=== PATIENT | female | born 1965 | race Caucasian/White ===

== ENCOUNTER 2024-06-05 02:34 | Emergency (ER) | payer OTHER, SELFPAY ==
[2024-06-05] VITALS (9 sets, daily range): BP systolic 119–151; BP diastolic 74–106; BMI 19.7
[2024-06-05 03:24] LABS: % Basophils 1.1 % (0-2); % Eosinophils 0.8 % (0-6); % Immature Granulocytes 0.5 % (0-0.5); % Lymphocytes 23.9 % (20.5-51.1); % Neutrophils 65.7 % (42.2-75.2); Absolute Lymphocytes 0.9 10^3/uL (1.2-3.4); Absolute Monocytes 0.3 10^3/uL (0.1-0.6); Absolute Neutrophils 2.5 10^3/uL (1.4-6.5); Hematocrit 34.4 % (37.0-47.0); Hemoglobin 11.8 g/dL (12.0-16.0); Mean Corp Hgb Conc. 34.3 g/dL (33.0-37.0); Mean Corpuscular Hgb 33.8 pg (27.0-31.0); Mean Corpuscular Volume 98.6 fL (81.0-99.0); Nucleated Red Blood Cells % 0 %; Red Blood Cell Count 3.49 10^6/uL (4.20-5.40); Red Cell Dist. Width 13.6 % (11.5-14.5); White Blood Cell Count 3.8 10^3/uL (4.8-10.8)
[2024-06-05] MEDS: LET TOPICAL ANESTHETIC GEL 3 ML TOPICAL (03:28)
[2024-06-05 03:30] LABS: ALT (SGPT) 210 U/L (0-35); AST (SGOT) 429 U/L (14-36); Albumin 4.4 g/dl (3.5-5.0); Alkaline Phosphatase 46 U/L (38-126); Blood Urea Nitrogen 10 mg/dl (7-17); Calcium 9.1 mg/dl (8.4-10.2); Carbon Dioxide 26 mmol/L (22-30); Chloride 100 mmol/L (98-107); Estimated Creatinine Clearance 76 ml/min; Glucose 103 mg/dl (70-99); Potassium 3.4 mmol/L (3.5-5.1); Sodium 144 mmol/L (135-145); Total Bilirubin 0.7 mg/dl (0.2-1.3); eGFR > 60.00
--- NOTE | 2024-06-05 04:27 | ED.GENMED ---
History of Present Illness
<DOYLE Power - Last Filed: 06/05/24 05:56>
General
Chief Complaint: Fainting/Passed Out
Source: patient
Exam Limitations: none
Time Seen by Provider: 06/05/24 03:37
Nursing documentation reviewed up to this point in time: agreed with
History of Present Illness
History of Present Illness:
Patient is a 58yo F who presets via EMS after 2 syncopal episodes. Pt states she remembers her vision going black and legs giving out on first syncopal episode. She does not remember waking up between or 2nd syncopal episode. She was getting up to
go to the BR so urinated during syncopal episode. She reports falling forward onto chin. States there was blood everywhere and that could have caused her to pass out the 2nd time. She denies any recent illness or sxs previously in day. Notes
shakiness of Tuesday, went to PCP and told high BP. No sxs since. Reports pain in chin and L jaw. Laceration on chin. Reports pain developing in upper back between shoulder blades. Denies ROACH, dizziness, chest pain, SOB, N/V/D/C. Admits to daily
drinking 3 drinks/day.
Past History
<DOYLE Power - Last Filed: 06/05/24 05:56>
Past History
ED Past Medical History: HTN, Hypothyroidism and Psychiatric
ED Past Surgical History: Gynecological and Other
Social History
Tobacco: Non-smoker
Alcohol: Daily
Drug: None
Personal: Other
Living: with family
Review of Systems
<DOYLE Power - Last Filed: 06/05/24 05:56>
Review of Systems
Constitutional: Denies fever, fatigue or chills
EENT: Denies sore throat or runny nose
Respiratory: Denies cough or trouble breathing
Cardiac: Denies chest pain or palpitations
ABD/GI: Denies abdominal pain, nausea, vomiting, diarrhea or constipated
: Denies dysuria
Musculoskeletal: Reports muscle pain, neck pain and back pain
Neurological: Denies dizzy, headache or numbness
Phy Exam
<Lorna Whitman [facility] - Last Filed: 06/05/24 05:56>
General Physical Exam
General Presentation: mild distress
General age: appears stated age
General Skin: warm and dry
General Habitus: normal
General Mental: alert
Cardiovascular Exam
Cardiovascular Exam: regular rate/rhythm, no edema, no gallop and no murmur
Pulmonary Exam
Pulmonary Exam: lungs clear, no respiratory distress, no rales, no crackles, no rhonchi and no wheezing
Neurological Exam
Neurological Exam: alert, oriented x3, no motor deficits and speech normal
Musculoskeletal Exam
Musculoskeletal Exam: full ROM and other (no bony tenderness )
Course
<Lorna Whitman [facility] - Last Filed: 06/05/24 05:56>
Orders/Labs/Results
Orders:
Orders
06/05/24 02:35
EKG [Electrocardiogram (*1)] Urgent
Reason for Study: Syncope
06/05/24 02:36
EKG- Treatment ONCE
06/05/24 03:09
CMP [Comprehensive Metabolic Panel] Urgent
Complete Blood Count/With Diff Urgent
06/05/24 03:25
CT Cervical Spine W/o Iv Contr Urgent
Comment:
Reason For Exam: syncope, neck pain
CT Head W/o Iv Contrast Urgent
Comment:
Reason For Exam: syncope
06/05/24 03:26
Lidocaine/Epinephrine/Tetracai [Let Topical Anesthetic Gel] 3 ml .ROUTE .[facility]
06/05/24 03:28
Lidocaine/Epinephrine/Tetracai [Let Topical Anesthetic Gel] 3 ml TOPICAL NOW STA
06/05/24 04:31
Add On- LAB Urgent
Tests Added?: alcohol
06/05/24 04:42
Protime/PTT Urgent
06/05/24 05:19
Tetanus/Diphth/Acelpertussis [Adacel] 0.5 ml IM .ONCE ONE
Abnormal Lab Results
06/05/24
03:09
WBC 3.8 L 10^3/uL
(4.8-10.8)
RBC 3.49 L 10^6/uL
(4.20-5.40)
Hgb 11.8 L g/dL
(12.0-16.0)
Hct 34.4 L %
(37.0-47.0)
MCH 33.8 H pg
(27.0-31.0)
Plt Count 60 L 10^3/uL
(130-400)
Absolute Lymphs (auto) 0.9 L 10^3/uL
(1.2-3.4)
Potassium 3.4 L mmol/L
(3.5-5.1)
Glucose 103 H mg/dl
(70-99)
AST 429 H U/L
(14-36)
ALT 210 H U/L
(0-35)
06/05/24 03:09
06/05/24 03:09
Vital Signs
Initial and Last Documented VS:
Initial Vital Signs
Pulse Resp BP Pulse Ox
65 13 149/87 99
06/05/24 02:41 06/05/24 02:41 06/05/24 02:41 06/05/24 02:41
Last Documented Vital Signs
Pulse Resp BP Pulse Ox
74 11 133/82 93
06/05/24 05:45 06/05/24 05:45 06/05/24 05:00 06/05/24 05:45
<Cynthia Dhaliwal, DO - Last Filed: 06/05/24 06:13>
Orders/Labs/Results
Orders:
Orders
06/05/24 02:35
EKG [Electrocardiogram (*1)] Urgent
Reason for Study: Syncope
06/05/24 02:36
EKG- Treatment ONCE
06/05/24 03:09
CMP [Comprehensive Metabolic Panel] Urgent
Complete Blood Count/With Diff Urgent
06/05/24 03:25
CT Cervical Spine W/o Iv Contr Urgent
Comment:
Reason For Exam: syncope, neck pain
CT Head W/o Iv Contrast Urgent
Comment:
Reason For Exam: syncope
06/05/24 03:26
Lidocaine/Epinephrine/Tetracai [Let Topical Anesthetic Gel] 3 ml .ROUTE .[facility] ONE
06/05/24 03:28
Lidocaine/Epinephrine/Tetracai [Let Topical Anesthetic Gel] 3 ml TOPICAL NOW STA
06/05/24 04:31
Add On- LAB Urgent
Tests Added?: alcohol
06/05/24 04:42
Protime/PTT Urgent
06/05/24 05:19
Tetanus/Diphth/Acelpertussis [Adacel] 0.5 ml IM .ONCE ONE
Abnormal Lab Results
06/05/24
03:09
WBC 3.8 L 10^3/uL
(4.8-10.8)
RBC 3.49 L 10^6/uL
(4.20-5.40)
Hgb 11.8 L g/dL
(12.0-16.0)
Hct 34.4 L %
(37.0-47.0)
MCH 33.8 H pg
(27.0-31.0)
Plt Count 60 L 10^3/uL
(130-400)
Absolute Lymphs (auto) 0.9 L 10^3/uL
(1.2-3.4)
Potassium 3.4 L mmol/L
(3.5-5.1)
Glucose 103 H mg/dl
(70-99)
AST 429 H U/L
(14-36)
ALT 210 H U/L
(0-35)
06/05/24 03:09
06/05/24 03:09
Vital Signs
Initial and Last Documented VS:
Initial Vital Signs
Pulse Resp BP Pulse Ox
65 13 149/87 99
06/05/24 02:41 06/05/24 02:41 06/05/24 02:41 06/05/24 02:41
Last Documented Vital Signs
Pulse Resp BP Pulse Ox
74 11 133/82 93
06/05/24 05:45 06/05/24 05:45 06/05/24 05:00 06/05/24 05:45
Procedures
<DOYLE Power - Last Filed: 06/05/24 05:56>
Laceration Closure
Chin:
Status of Wound: clean
Size of Wound in cm: 1.5
Description of Wound Edges: sharp
Preparation: cleaned with saline
Anesthesia: Topical-LET
Revision/Debridement: routine- no revision
Type of Closure: Dermabond-skin glue
<DOYLE Power - Last Filed: 06/05/24 05:56>
*Critical Care Note
Total Time (30-74mins, 75-104mins- exclusive of procedures): Not Applicable
<Cynthia Dhaliwal DO - Last Filed: 06/05/24 06:13>
*Radiology
Radiology exam reviewed: radiology read reviewed
*Pulse Oximetry
Patient hypoxic: no
*EKG
Interpreted by ED Provider?: Yes
Interpretation: normal
Comparison EKG: no comparison EKG present
Rate: normal
Rhythm: sinus
[place]: normal axis
Interval: normal interval
QRS Pattern: normal QRS
Ischemia: no ischemia
*Content Production Specialist Interpretation
Rate: normal
Interpretation: normal
Rhythm: sinus
ED Attending Note
<DOYLE Power - Last Filed: 06/05/24 05:56>
-
Portions of this chart may have been created with voice recognition software.� Occasional wrong word or��sound alike� substitutions may have occurred due to the inherent limitations of voice recognition software.
<Cynthia Dhaliwal DO - Last Filed: 06/05/24 06:13>
ED Attending Note
Patient seen and examined by attending physician: Yes
I performed the substantive portion of visit, reviewed & personally made and approve the management plan that is documented in note by myself or TATE.: Yes
ED Attending Note:
This is a 58-year-old woman with history of hypothyroidism, daily alcohol consumption who states she got up out of bed to go to the bathroom to void and once in the bathroom she states her 'vision went black' and she proceeded to pass out striking
her chin on the bathroom floor. Her son heard a thud and upon investigating found his mother attempted to stand up and when she did so she abruptly passed out again but no recurrent injury. Patient has no recollection of her son being at her side
and second episode of passing out she does recall EMS arrival and has had full recollection since then.
She notes mild posterior neck pain but denies headache. No nausea nor vomiting. Mild jaw pain and some tenderness at chin laceration. She notes chronically poor dentition but denies dental pain nor dental fractures.
She notes mild mid back pain that only began after arrival to the ED with lying supine. She denies chest pain or abdominal pain. No extremity pain. No weakness or numbness. No palpitations nor shortness of breath.
She takes no anticoagulants.
She is unsure as to her last Tdap but believes this was definitely greater than 10 years ago.
TRAUMA EXAM:
VITAL SIGNS: Vital signs reviewed, cooperative
DISTRESS: No active disease. 58-year-old woman appears somewhat older than stated age, bright and alert, pleasant, appears in no acute distress. GCS of 15.
EYES: Pupils reactive, no orbital trauma
NOSE: No deformity or epistaxis
FACE AND SCALP: No scalp trauma, external canals no blood. There is a 3 cm mildly curved laceration at the chin. This laceration is full-thickness. No bleeding. Mild local tenderness to palpation. There is full mandible range of motion without
difficulty nor pain. Globally poor dentition. No dental tenderness. No facial tenderness.
NECK: Supple, no midline bony tenderness nor step-off deformity. Cervical collar in place.
BACK: Patient able to sit up with ease and without difficulty. No midline bony tenderness., pelvis stable to compression
RESPIRATORY: No distress, breath sounds normal, no tender chest wall
CARDIAC: No murmur, pulses equal and strong
ABDOMEN: Soft nontender bowel sounds normal
SKIN: Skin intact, warm and dry, normal color.
EXTREMITIES: Nontender, full range of motion without difficulty nor pain.
NEUROLOGICAL: Alert, oriented, no motor deficits
PSYCH: Mood affect normal
MDM: Concern for closed head injury, C-spine fracture thus CT of the head and cervical spine obtained.
Patient with history of chronic daily alcohol use, previous records note mild thrombocytopenia, mildly elevated LFTs. Will recheck and will check alcohol level as well however clinically not intoxicated.
History concerning for vasovagal syncope, other consideration is cardiac arrhythmia, electrolyte abnormality, alcohol intoxication.
EKG is reassuring showing normal sinus rhythm, no acute abnormalities. Monitor shows similar.
She remains hemodynamically stable.
Will plan for Dermabond repair of chin laceration.
06/05/[address] cervical spine shows DJD but no evidence of fracture.
CT of the head concerning for small subdural blood products along the anterior falx cerebri versus a small meningioma.
Labs are concerning for mild pancytopenia with platelet count of 60.
LFTs moderately elevated at 200-400 which is trended up from previous.
PT/PTT are pending as is alcohol level.
Patient remains bright and alert, GCS 15.
Due to thrombocytopenia and concern for subdural hematoma I have touch base with neurosurgery on-call recommends transfer to trauma center. Consider platelet transfusion to keep platelets above 100,000.
Case discussed with [facility] trauma, patient preliminarily accepted in transfer if there is bed availability.
06/05/2024 0609 AM
Patient accepted to [facility], transferred to the ED initially.
Patient remains bright and alert, GCS of 15. Denies headache.
Reassuring that PT PTT are normal.
Discharge Plan
Departure
Patient Disposition: Acute Care Hospital
Date of Disposition: 06/05/24
Time of Disposition: 05:30
Discharge Problem:
Acute subdural hematoma, Chin laceration, Syncope, vasovagal, Chronic alcohol use
Prescriptions:
No Action
Advil Cold and Sinus 30-200 mg Tablet
1 tab PO Q6H PRN (Reason: congestion)
acetaminophen [Tylenol Extra Strength] 500 mg Tablet
500 mg PO DAILYPRN PRN (Reason: headache)
fluticasone propionate 50 mcg/actuation [place],Suspension
1 spray INTRANASAL HSPRN PRN (Reason: congestion)
levothyroxine 88 mcg Tablet
88 mcg PO DAILY Qty: 30 0RF
Referrals:
Dayne Mars DO [Family Provider] -
Hospital Transfer
Other hospital: [facility]
I certify that the patient requires transfer: Yes
Discussed case with accepting physician: Rony
Reason for transfer: higher level of care and specialties available
Interventions
Interventions:
*Risk Screen - Suicide Last Done: 06/05/24 02:41
*General Assessment Last Done: 06/05/24 02:41
*Neglect/Abuse Screening Last Done: 06/05/24 02:41
*ED COVID-19 Vaccine History Last Done: 06/05/24 02:41
ED- Cardiac Assessment Last Done: 06/05/24 03:00
ED- Neurological Assessment Last Done: 06/05/24 05:00
ED-Skin Assessment Last Done: 06/05/24 03:56
Discharge Date and Time
Print Language: HEBREW
[2024-06-05 04:48] LABS: Mean Platelet Volume 9.1 fL (7.4-10.4); Platelet Count 60 10^3/uL (130-400)
[2024-06-05 04:59] LABS: APTT 23.6 Sec (23.4-35.0); INR 0.96; PT 12.6 Sec (11.4-14.6)
[2024-06-05] MEDS: ADACEL 0.5 ML IM (05:47)
--- NOTE | 2024-06-05 06:33 | EDRN ---
Report given to [facility] auto body repairman, auto body repairman w/ request for dayshift RN to call [facility] back when Acute Care arrives here to [place] [facility]. This RN to notify dayshift of this request. Current ETA for Acute Care is 08:45 this morning.
[2024-06-05 07:11] LABS: Alcohol 211 mg/dl
== END 2024-06-05 09:41 | disposition short-term general hospital (02) ==
LOC: EMR 02:34
PROVIDERS: EMERGENCY PHYSICIAN Emergency Medicine; FAMILY PHYSICIAN Family Medicine Adult Medicine
DX: S06.5XAA Traumatic subdural hemorrhage with loss of consciousness status unknown, initial encounter (principal); S01.81XA Laceration without foreign body of other part of head, initial encounter; R55 Syncope and collapse; F10.10 Alcohol abuse, uncomplicated; W22.03XA Walked into furniture, initial encounter; Z23 Encounter for immunization; I10 Essential (primary) hypertension; E03.9 Hypothyroidism, unspecified
CPT/HCPCS: 99284; 12011; 90471; 70450; 72125; 80053; 82077; 85025; 85610; 85730; 90715; 93005

== ENCOUNTER → 2024-06-14 16:01 | Outpatient (REF) | payer OTHER, SELFPAY | LOC: RAD 16:01 | PROVIDERS: ATTENDING PHYSICIAN Nurse Practitioner Family; FAMILY PHYSICIAN Family Medicine Adult Medicine | DX: S06.5XAA Traumatic subdural hemorrhage with loss of consciousness status unknown, initial encounter (principal) | CPT/HCPCS: 70450 ==

== ENCOUNTER 2024-06-28 00:06 | Observation (INO) | payer OTHER, SELFPAY ==
[2024-06-27 18:59] VITALS: BMI 19.9
[2024-06-27 19:03] VITALS: BP 169/119
[2024-06-27 19:19] LABS: % Basophils 0.6 % (0-2); % Eosinophils 0.1 % (0-6); % Immature Granulocytes 0.3 % (0-0.5); % Lymphocytes 12.9 % (20.5-51.1); % Monocytes 4.3 % (1.7-9.3); % Neutrophils 81.8 % (42.2-75.2); Absolute Basophils 0.1 10^3/uL (0-0.2); Absolute Lymphocytes 1.5 10^3/uL (1.2-3.4); Absolute Monocytes 0.5 10^3/uL (0.1-0.6); Absolute Neutrophils 9.6 10^3/uL (1.4-6.5); Hematocrit 42.5 % (37.0-47.0); Hemoglobin 14.2 g/dL (12.0-16.0); Mean Corp Hgb Conc. 33.4 g/dL (33.0-37.0); Mean Corpuscular Hgb 33.7 pg (27.0-31.0); Nucleated Red Blood Cells % 0 %; Platelet Count 266 10^3/uL (130-400); Red Blood Cell Count 4.21 10^6/uL (4.20-5.40); Red Cell Dist. Width 12.1 % (11.5-14.5); White Blood Cell Count 11.8 10^3/uL (4.8-10.8)
[2024-06-27 19:30] LABS: ALT (SGPT) 29 U/L (0-35); AST (SGOT) 25 U/L (14-36); Albumin 4.7 g/dl (3.5-5.0); Alkaline Phosphatase 43 U/L (38-126); Blood Urea Nitrogen 12 mg/dl (7-17); Calcium 9.8 mg/dl (8.4-10.2); Carbon Dioxide 24 mmol/L (22-30); Chloride 98 mmol/L (98-107); Glucose 107 mg/dl (70-99); Lipase 177 U/L (23-300); Potassium 4.2 mmol/L (3.5-5.1); Sodium 134 mmol/L (135-145); Total Bilirubin 0.4 mg/dl (0.2-1.3); Total Protein 7.6 g/dl (6.3-8.2); eGFR > 60.00
[2024-06-27 20:42] VITALS: BP 174/106
--- NOTE | 2024-06-27 20:42 | ED.GENMED ---
History of Present Illness
General
Chief Complaint: Abdominal Pain
Source: patient and records
Exam Limitations: none
Time Seen by Provider: 06/27/24 20:19
Nursing documentation reviewed up to this point in time: agreed with
History of Present Illness
History of Present Illness:
58-year-old female with a past medical history of hypertension, hypothyroidism, thyroid cancer status post thyroidectomy who presents to the emergency room for evaluation of abdominal pain. Patient does have notable recent history of traumatic
subdural hemorrhage in late May, was admitted at [facility] has been stable since discharge (had follow-up CT 06/14/2024 which showed resolution). She presents today for abdominal pain�she reports pain located in the lower abdomen
somewhat worse on the left and has been constant since this morning. No clear triggering or relieving factors noted. She reports 1 episode of nonbloody nonbilious emesis. She denies any diarrhea or constipation�had 2 regular bowel movements today
nonbloody. She denies any fevers or chills. She denies any urinary symptoms. She denies any other complaints. She denies having had similar symptoms in the past. She has prior surgical history of hysterectomy.
Past History
Past History
ED Past Medical History: HTN, Hypothyroidism and Psychiatric
ED Past Surgical History: Gynecological and Other
Social History
Tobacco: Non-smoker
Alcohol: Daily
Drug: None
Personal: Other
Living: with family
Review of Systems
Review of Systems
All Other Systems: ROS reviewed and negative except as documented in HPI and ROS
Constitutional: Denies fever or chills
EENT: Denies sore throat or runny nose
Respiratory: Denies cough or trouble breathing
Cardiac: Denies chest pain or palpitations
ABD/GI: Reports abdominal pain, nausea and vomiting; Denies diarrhea, constipated or bloody stools
: Denies dysuria, frequency, flank pain or bleeding
Musculoskeletal: Denies neck pain or back pain
Neurological: Denies dizzy or headache
Phy Exam
Physical Exam
Physical Exam:
General: Awake, alert, oriented x3; no acute distress
Head: Normocephalic, atraumatic
Eyes: Conjunctiva normal, sclera anicteric, pupils equal round reactive to light bilaterally
Throat: Airway intact, handling secretions
Neck: Trachea midline, supple without meningismus
Lungs: Clear to auscultation bilaterally, no wheezing, rales, rhonchi
Heart: Regular rate and rhythm, no murmurs, gallops, or rubs
Abd: Soft, non distended, focally tender in the left lower quadrant, no palpable masses
Back: No CVA tenderness
Neuro: No gross deficits
Extremities: No edema in extremities, warm and well-perfused
Scores
Heart Failure Risk
Heart Failure Risk Score: Not Applicable
Heart Score for Chest Pain Patients
STEMI patient?: Not applicable
Withdrawal Assessment of Alcohol
Withdrawal Assessment Completed?: Not applicable
Course
Orders/Labs/Results
Orders:
Orders
06/27/24 19:06
Urinalysis Reflex To Culture Urgent
Date Specimen was Collected: 06/27/24
Time Specimen was Collected: 19:06
06/27/24 19:12
Complete Blood Count/With Diff Urgent
Comprehensive Metabolic Panel Urgent
Lipase Urgent
06/27/24 20:27
Ketorolac [Toradol] 15 mg IV NOW STA
06/27/24 20:28
CT Abd/pelvis W Iv Cont Urgent
Comment:
Reason For Exam: LLQ abd pain and TTP
Abnormal Lab Results
06/27/24
19:12
WBC 11.8 H 10^3/uL
(4.8-10.8)
MCV 101.0 H fL
(81.0-99.0)
MCH 33.7 H pg
(27.0-31.0)
Absolute Neuts (auto) 9.6 H 10^3/uL
(1.4-6.5)
Neutrophils % 81.8 H %
(42.2-75.2)
Lymphocytes % 12.9 L %
(20.5-51.1)
Sodium 134 L mmol/L
(135-145)
Glucose 107 H mg/dl
(70-99)
06/27/24 19:12
06/27/24 19:12
Vital Signs
Initial and Last Documented VS:
Initial Vital Signs
Temp Pulse Resp BP Pulse Ox
37.2 C 88 19 169/119 98
06/27/24 19:03 06/27/24 19:03 06/27/24 19:03 06/27/24 19:03 06/27/24 19:03
Last Documented Vital Signs
Temp Pulse Resp BP Pulse Ox
37.2 C 88 19 174/106 97
06/27/24 19:03 06/27/24 19:03 06/27/24 19:03 06/27/24 20:42 06/27/24 21:15
MDM/Problems Addressed
Differential Diagnosis Includes:
Diverticulitis, UTI/pyelonephritis, nephrolithiasis, hernia
MDM/Problems Addressed:
58-year-old female presents for evaluation of left lower quadrant abdominal pain started this morning has been constant throughout the day. Associated with 1 episode of vomiting. Hypertensive otherwise normal vitals. Physical exam as above. Will
place an IV check labs including a CBC and a CMP. Check lipase. Check urinalysis. Check CT abdomen pelvis. Provide pain control. Reassess after the above.
Labs reviewed: CBC shows slight leukocytosis. CMP no clinically significant abnormalities. Lipase normal. Awaiting results of CT and urinalysis. Continue to monitor.
CT abdomen pelvis reviewed: Shows small bowel obstruction with discrete transition point near right inguinal hernia containing a small loop of the distal ileum. On clinical reassessment I was able to palpate the small hernia in the right inguinal
region. I was able to reduce it at the bedside. Will admit for serial exams and monitoring of SBO. No vomiting, hold on NG tube. Case discussed with hospitalist.
Acute Exacerbation and/or Progression of Chronic Illness:
Acutely hypertensive likely pain related�treat pain but no indication for emergent antihypertensives right now
Acute Exacerbation and/or Progression of Chronic Illness: HTN
*Radiology
Radiology exam reviewed: radiology read reviewed
*Pulse Oximetry
Patient hypoxic: no
*Critical Care Note
Total Time (30-74mins, 75-104mins- exclusive of procedures): Not Applicable
Data Reviewed
Review of Other/Old Records Reveals: Labs and Records
Source: patient and records
Patient Management
Discussion with other providers: Hospitalist (Discussed with hospitalist)
Escalation/DeEscalation of care consider admission/obs:
Admission indicated
ED Attending Note
-
Portions of this chart may have been created with voice recognition software.� Occasional wrong word or��sound alike� substitutions may have occurred due to the inherent limitations of voice recognition software.
Discharge Plan
Departure
Patient Disposition: Admit
Date of Disposition: 06/27/24
Time of Disposition: 22:27
Admit to doctor: Irvin
Presentation/result/management discussed w/ accepting MD/DO: Hospitalist
Discharge Problem:
Small bowel obstruction, Inguinal hernia
Prescriptions:
No Action
Advil Cold and Sinus 30-200 mg Tablet
1 tab PO Q6H PRN (Reason: congestion)
acetaminophen [Tylenol Extra Strength] 500 mg Tablet
500 mg PO DAILYPRN PRN (Reason: headache)
fluticasone propionate 50 mcg/actuation [place],Suspension
1 spray INTRANASAL HSPRN PRN (Reason: congestion)
levothyroxine 88 mcg Tablet
88 mcg PO DAILY Qty: 30 0RF
Referrals:
Dayne Mars DO [Family Provider] -
Interventions
Interventions:
*General Assessment Last Done: 06/27/24 20:53
*ED COVID-19 Vaccine History Last Done: 06/27/24 20:53
OJ-Xpqplx-Xuwknipksf Assessment Last Done: 06/27/24 20:54
Discharge Date and Time
Print Language: SLOVENIAN
[2024-06-27] MEDS: TORADOL 15 MG IV (20:49)
--- NOTE | 2024-06-27 23:13 | HPS.HSE ---
Family Physician
-
Family Physician: Dayne Mars
Chief Complaint
-
abdominal pain
History of Present Illness
58-year-old female past medical history of hypertension, thyroid cancer status post thyroidectomy, hypothyroidism, subdural hemorrhage in May presenting to the emergency room for abdominal pain. She had pain in her lower abdomen worse on the
right constant since this morning. She had 1 episode of nonbloody nonbilious emesis. She denies diarrhea or constipation. She had 2 regular bowel movements today without blood. She denies fevers or chills. Denies urinary symptoms. Denies
similar symptoms previously.
She is found to have right inguinal hernia on examination which was reduced. She has less pain currently.
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
She denies smoking or alcohol use.
Medical History
Past Medical History
Past Medical History: Reports Other (hypertension, thyroid cancer status post thyroidectomy, hypothyroidism, subdural hemorrhage in May)
Past Surgical History: Reports Other (Hysterectomy)
Social History
Tobacco: Non-smoker
Alcohol: None
Drug: None
Family History
Family History: Not pertinent
Allergies / Home Medications
Allergies reflects when Allergies were last updated in [email or web address].
Home Medications with original date entered in [email or web address]
Allergy/Medication List:
Allergies
Allergy/AdvReac Type Severity Reaction Status Date / Time
amoxicillin Allergy Hives Verified 06/27/24 19:06
bacitracin Allergy Hives Verified 06/27/24 19:06
Cephalosporins Allergy Hives Verified 06/27/24 19:06
clindamycin Allergy Hives Verified 06/27/24 19:06
Penicillins Allergy Hives Verified 06/27/24 19:06
polymyxin B Allergy Unknown Verified 06/27/24 19:06
Home Medications
levothyroxine 75 mcg tablet 75 mcg PO DAILY 06/27/24
Review of Systems
-
History Source: Patient
A 12 point ROS was completed and negative except as noted: Yes
Constitutional: Reports No Symptoms
EENT: Reports No Symptoms
Respiratory: Reports No Symptoms
Cardiac: Reports No Symptoms
Abdomen/GI: Reports See HPI
: Reports No Symptoms
Musculoskeletal: Reports No Symptoms
Skin: Reports No Symptoms
Neurological: Reports No Symptoms
Endocrine: Reports No Symptoms
Hematologic/Lymphatic: Reports No Symptoms
Psych: Reports No Symptoms
Physical Exam
Vital Signs
Vital Signs
Temp Pulse Resp BP Pulse Ox
99.0 F 88 19 174/106 97
06/27/24 19:03 06/27/24 19:03 06/27/24 19:03 06/27/24 20:42 06/27/24 21:15
Physical Exam
General: Well Developed, Well Nourished and No Apparent Distress
HEENT: NormoCephalic, Moist mucous membranes and Atraumatic
Respiratory: Clear
Cardiac: S1/S2 and Regular Rhythm; No Murmur or Rub
GI: Soft, Non Tender, Non Distended, Normal Bowel Sounds and Other (right inguinal hernia reduced ); No Organomegaly
Rectal: Deferred by Provider
Musculoskeletal: No Clubbing, No Cyanosis and No Edema
Skin: No Rash
Neuro: Nonfocal/grossly intact
Laboratory Results
-
06/27/24 19:12
06/27/24 19:12
Laboratory Results
Total Bilirubin 0.4 mg/dl (0.2-1.3) 06/27/24 19:12
AST 25 U/L (14-36) 06/27/24 19:12
ALT 29 U/L (0-35) 06/27/24 19:12
Alkaline Phosphatase 43 U/L (38-126) 06/27/24 19:12
Lipase 177 U/L (23-300) 06/27/24 19:12
Data Reviewed
-
Lab Data: Labs Reviewed by me
Old Records: Reviewed
Impression/Plan
-
IMPRESSION:
PLAN:
# Small bowel obstruction within right inguinal hernia now reduced
-Leukocytosis
-CT abdomen pelvis shows small bowel obstruction with discrete transition point at the site of the right inguinal hernia that contains a short segment of distal ileal small bowel
-Reduced by ER
-Ketorolac, Dilaudid as needed
-N.p.o.
-IV fluids, Zofran
-General Surgery consulted
Essential hypertension
Thyroid cancer status post thyroidectomy
Hypothyroidism
-Continue levothyroxine
History of subdural hemorrhage in May
Full code
DVT prophylaxis�SCDs
N.p.o.
[2024-06-27] MEDS: NSS 1000 IV (23:15)
[2024-06-27 23:37] LABS: Urine Albumin Negative (Neg - Trace); Urine Bilirubin Negative (Negative); Urine Character Clear (Clear); Urine Color Yellow; Urine Glucose Negative (Negative); Urine Ketone Trace (Negative); Urine Leukocyte Negative (Negative); Urine Nitrite Negative (Negative); Urine Occult Blood Negative (Negative); Urine Urobilinogen Negative (Neg - 1+)
[2024-06-27 23:49] VITALS: BP 147/108
[2024-06-28] VITALS: BP 137/84
[2024-06-28 00:17] VITALS: BMI 19.4
[2024-06-28 00:18] VITALS: BP 187/109
[2024-06-28] MEDS: NSS 1000 IV (00:31)
[2024-06-28 00:43] VITALS: BP 190/105
--- NOTE | 2024-06-28 01:12 | PTCARENOTE ---
Received pt from ED. Walked to bed from stretcher. BP at 00:18 was 187/109. Manual BP obtained, 190/105. Per pt, she is very sensitive to blood pressure medication and the docs in the ED wanted to just monitor it. Pt stated that she had taken
medication for her blood pressure in the past but that it 'brought it too low' and then she needed medication to 'bring it back up' but that she was 'allergic' to said medication. Pt could not recall either medication. She also stated that when her
PCP tried to start her on the 'lowest dose' of a blood pressure medication, it lowered her BP too much. She could not recall that medication either. House provider notified of elevated BP. Will recheck BP once pt settled down in room. No new orders
at this time.
[2024-06-28 01:39] VITALS: BP 138/90
[2024-06-28] MEDS: SYNTHROID 75 MCG PO (05:15)
[2024-06-28 06:39] LABS: % Basophils 0.9 % (0-2); % Eosinophils 0.9 % (0-6); % Immature Granulocytes 0.4 % (0-0.5); % Lymphocytes 20.9 % (20.5-51.1); % Monocytes 6.7 % (1.7-9.3); % Neutrophils 70.2 % (42.2-75.2); Absolute Basophils 0.1 10^3/uL (0-0.2); Absolute Eosinophils 0.1 10^3/uL (0-0.7); Absolute Lymphocytes 1.7 10^3/uL (1.2-3.4); Absolute Monocytes 0.6 10^3/uL (0.1-0.6); Absolute Neutrophils 5.8 10^3/uL (1.4-6.5); Hemoglobin 13.1 g/dL (12.0-16.0); Mean Corpuscular Hgb 33.6 pg (27.0-31.0); Mean Corpuscular Volume 105.1 fL (81.0-99.0); Nucleated Red Blood Cells % 0 %; Platelet Count 245 10^3/uL (130-400); Red Cell Dist. Width 12.1 % (11.5-14.5); White Blood Cell Count 8.2 10^3/uL (4.8-10.8)
[2024-06-28 06:59] LABS: ALT (SGPT) 23 U/L (0-35); AST (SGOT) 23 U/L (14-36); Albumin 3.7 g/dl (3.5-5.0); Alkaline Phosphatase 31 U/L (38-126); Blood Urea Nitrogen 9 mg/dl (7-17); Calcium 8.9 mg/dl (8.4-10.2); Carbon Dioxide 26 mmol/L (22-30); Chloride 105 mmol/L (98-107); Estimated Creatinine Clearance 88 ml/min; Glucose 83 mg/dl (70-99); Potassium 4.4 mmol/L (3.5-5.1); Sodium 142 mmol/L (135-145); Total Bilirubin 0.5 mg/dl (0.2-1.3); Total Protein 6.5 g/dl (6.3-8.2); eGFR > 60.00
[2024-06-28 08:00] VITALS: BP 129/86
--- NOTE | 2024-06-28 08:42 | CON.GS ---
Medical History
-
Chief Complaint: Abdominal pain
History of Present Illness:
Patient is a 58-year-old female was in her usual baseline state of health until she developed the acute onset of abdominal pain yesterday while she was out with grandchildren and daughter. She states today proceeding her symptoms she was doing a
lot of moving around the house but felt fine at that time. Abdominal pain was abrupt in onset increased in severity and within a couple hours she started vomiting. Initially she was not localizing the pain or tenderness and did not take note of
the swelling. She presented to the emergency department yesterday evening for evaluation. CT imaging was obtained identifying a right femoral hernia. This was subsequently confirmed by the emergency physician and the team was able to reduce the
hernia.
Symptoms are resolved this a.m. denies pain. Denies swelling in the inguinal region. No nausea. Hungry. Last bowel movement yesterday.
Past Medical History
Past Medical History: Other (Labile blood pressure with hypertension as well as hypotension reported by patient; hypothyroidism, subdural in May)
Past Surgical History: Gynecological (Vaginal hysterectomy) and Other (Thyroidectomy)
Social History
Living: With Family
Family History
Family History: Reviewed & Not Pertinent
Allergies / Home Medications
Allergy/AdvReac Type Severity Reaction Status Date / Time
amoxicillin Allergy Hives Verified 06/27/24 19:06
bacitracin Allergy Hives Verified 06/27/24 19:06
Cephalosporins Allergy Hives Verified 06/27/24 19:06
clindamycin Allergy Hives Verified 06/27/24 19:06
Penicillins Allergy Hives Verified 06/27/24 19:06
polymyxin B Allergy Unknown Verified 06/27/24 19:06
�Medication �Instructions �Recorded �Confirmed �Type
levothyroxine 75 mcg tablet 75 mcg PO DAILY 06/27/24 06/27/24 History
Review of Systems
-
History Source: Patient
All other systems: Negative unless noted
A 10 point review of systems was completed, and was negative except as per HPI.
Physical Exam
Vital Signs
Temp Pulse Resp BP Pulse Ox
98.3 F 70 16 129/86 100
06/28/24 08:00 06/28/24 08:00 06/28/24 08:00 06/28/24 08:00 06/28/24 08:00
06/27/24 06/28/24 06/29/24
06:59 06:59 06:59
Actual Weight 54.431 kg
Body Mass Index (BMI) 19.4
Lab Results
06/28/24 05:21
06/28/24 05:21
WBC 8.2 10^3/uL (4.8-10.8) 06/28/24 05:21
Hgb 13.1 g/dL (12.0-16.0) 06/28/24 05:21
Hct 41.0 % (37.0-47.0) 06/28/24 05:21
Plt Count 245 10^3/uL (130-400) 06/28/24 05:21
Abs Immat Gran (auto) 0.0 10^3/uL (0-0.05) 06/28/24 05:21
Neutrophils % 70.2 % (42.2-75.2) 06/28/24 05:21
Physical Exam
General: Well Developed, Well Nourished, No Apparent Distress and Comfortable
HEENT: Normocephalic, Anicteric and Moist Mucous Membranes
Respiratory: Non Labored Respirations
Cardiac: Regular Rhythm
GI: Soft, Non Tender, Non Distended and Other (No detectable hernia while lying supine in hospital bed.)
Skin: Warm
Neuro: AO x 3
Psych: Calm
Data Reviewed
-
CT Scan: Image Personally Visualized and interpreted, Report Reviewed by me, Discussed with Physician, Discussed with Patient and Discussed with Family
Assessment / Plan
-
Assessment: 58-year-old female presenting with temporarily incarcerated right femoral hernia and associated SBO. This was able to be reduced by emergency department staff. Her symptoms are now completely resolved there is no residual obstructive
symptoms either.
Offered and recommended strong consideration of operative correction today. Patient declined as she has a doctor's appointment tomorrow with her neurologist and she does not want to miss this.
Advised patient and her daughter who was present on conference phone call risk for recurrent incarceration/strangulation/obstruction which would necessitate repeat emergency department evaluation and possible need for more urgent/emergent surgical
intervention as well as threat to bowel/viscera. They acknowledged this risk and understanding.
Plan: We will therefore advance her diet and discharge home with outpatient scheduling of interval robotic assisted laparoscopic repair right femoral hernia with mesh.
Reviewed the operative procedure in detail the patient including the operative technique, operative recovery. Any of the patient's or her daughters concerns or questions were fully addressed.
My office will contact Ms. Infante to schedule outpatient surgery
--- NOTE | 2024-06-28 09:55 | CM ---
Reviewed the chart notes and spoke with the patient at the bedside. The patient is admitted under observational status. The observational letter was provided and explained. The patient had no questions with regards to the letter.
The patient's son resides with the patient in a two story home with three steps to enter. The patient reports no DME/VN/SNF in the past. The patient confirmed her pharmacy of choice is the [facility] continues to be available to
patient/family and is monitoring medical plan for needs at discharge.
Plan: Discharge to home when medically stable.
--- NOTE | 2024-06-28 12:48 | W.PN.HOSP.TC ---
Today's Communication/Plan
-
Discharge home
Assessment / Plan
Assessment / Plan
Small bowel obstruction with an right inguinal hernia, reduced in the ER, evaluated by general surgery recommended surgical intervention however refused and would like outpatient surgical follow-up. Tolerating diet well. Will be discharged home
today.
Hypothyroidism continue levothyroxine
Anticipated Discharge: Today
Subjective/Interval History
-
Date of Service: June 28, 2024
Seen and examined. No new complaints. No acute overnight events.
Tolerating breakfast very well. No complaints.
Has intermittent lower pelvic discomfort. Passing gas. Moving bowels.
Discussed case with surgery, she refused surgical intervention at this time and would like to go home with outpatient surgical follow-up.
Objective Data
-
Labs:
Laboratory Results
06/28/24
05:21
WBC 8.2
Hgb 13.1
Hct 41.0
Plt Count 245
Sodium 142 D
Potassium 4.4
Chloride 105
Carbon Dioxide 26
BUN 9
Creatinine 0.6
Glucose 83
Calcium 8.9
Total Bilirubin 0.5
AST 23
ALT 23
Alkaline Phosphatase 31 L
Vital Signs:
Vital Signs
Temp Pulse Resp BP Pulse Ox
98.3 F 70 16 129/86 100
06/28/24 08:00 06/28/24 08:00 06/28/24 08:00 06/28/24 08:00 06/28/24 08:00
I&O
06/27/24 06/28/24 06/29/24
06:59 06:59 06:59
Intake Total 800 / 800
Balance 800 / 800
--- NOTE | 2024-06-28 12:50 | W.DCSUMMARY ---
Discharge Summary
Discharge Data
Date of Admission: 06/28/24
Date of Discharge: 06/28/24
-
Pending Results: No
Hospital Course
58 female history of hypertension thyroid cancer s/p thyroidectomy, hypothyroidism, subdural hemorrhage in May who presents with abdominal pain that is lower worse on the right that acutely began yesterday morning. 1 episode of nonbilious
nonbloody vomiting. 2 regular BMs without blood. CT found small bowel obstruction with discrete transition point at site of right inguinal hernia that contains short segment of distal ileal small bowel. Reduced by the ER. Kept NPO. Evaluated by
general surgery recommended surgical intervention however Ms. Infante declined and would like outpatient surgical follow up
Discharge Plan
-
Patient Disposition: Home (Routine Discharge)
Discharge Diagnosis/Procedures: SBO with inguinal hernia that was reduced
Condition: Good
Diet: As tolerated
Activity: As tolerated
Activity Restrictions/Additional Instructions:
CTAP
IMPRESSION:
Developing small bowel obstruction with a discrete transition point at the site of a right inguinal hernia that contains a short segment of distal ileal small bowel.
Referrals:
Dayne Mars DO [Family Provider] -
Rolo Harper MD [Active] - in one to two weeks
Prescriptions:
Continued
levothyroxine 75 mcg tablet
75 mcg PO DAILY
Discharge Orders:
Discharge Patient (As Directed); Ordered 06/28/24
Ordered By: Sunil Cramer
Discharge Date and Time
Discharge Date/Time: 06/28/24 11:14
Print Language: WOLOF
== END 2024-06-28 11:14 | disposition home or self-care (01) ==
LOC: 2 SOUTH 00:06
PROVIDERS: Emergency Medicine; ADMITTING PHYSICIAN Hospitalist; ATTENDING PHYSICIAN Hospitalist; CONSULT PHYSICIAN Surgery; EMERGENCY PHYSICIAN Emergency Medicine; FAMILY PHYSICIAN Family Medicine Adult Medicine
DX: K41.30 Unilateral femoral hernia, with obstruction, without gangrene, not specified as recurrent (principal); K56.609 Unspecified intestinal obstruction, unspecified as to partial versus complete obstruction; R10.9 Unspecified abdominal pain; I10 Essential (primary) hypertension; E89.0 Postprocedural hypothyroidism; D72.829 Elevated white blood cell count, unspecified; Z85.850 Personal history of malignant neoplasm of thyroid; Z90.710 Acquired absence of both cervix and uterus; Z87.820 Personal history of traumatic brain injury; Z79.890 Hormone replacement therapy; Z88.1 Allergy status to other antibiotic agents; Z88.0 Allergy status to penicillin
CPT/HCPCS: 74177; 80053; 81003; 83690; 85025; 96361; 96374; 99284; Q9967

== ENCOUNTER 2024-07-30 06:26 | Day surgery (SDC) | payer OTHER, SELFPAY ==
[2024-07-30] VITALS (7 sets, daily range): BP systolic 125–150; BP diastolic 81–91; BMI 20.2
--- NOTE | 2024-07-30 10:44 | HP.FOC2 ---
Focused History & Physical
Chief Complaint
HPI:
Chief Complaint: Right femoral hernia
HPI / Indication for Planned Procedure: Patient is a 58-year-old female recently evaluated in the emergency department on 06/28/2024 after developing the acute onset of abdominal pain and right inguinal swelling. The emergency department physician
and team were able to reduce her hernia alleviating her symptoms. Patient presents today for scheduled operative correction.
Relevant Past Medical History: Other (Labile blood pressure with hyper/hypotension; hypothyroidism, history of subdural hemorrhage in May)
Relevant Social History: Negative
Relevant Family History: Negative
Relevant Past Surgical History: Positive for (Hysterectomy, thyroidectomy)
Review of Systems
Review of Pertinent Systems: All Systems Negative
Medication
See Medication form for detailed medications: Yes
Medication List (including Herbals & OTC):
levothyroxine 75 mcg tablet 75 mcg PO DAILY 06/27/24
Medications Reviewed: Yes
Allergies and Reactions
Patient has Allergies: Yes
Noted Allergies and Reactions:
Allergy/AdvReac Type Severity Reaction Status Date / Time
amoxicillin Allergy Hives Verified 07/26/24 14:54
bacitracin Allergy Hives Verified 07/26/24 14:54
Cephalosporins Allergy Hives Verified 07/26/24 14:54
clindamycin Allergy Hives Verified 07/26/24 14:54
Penicillins Allergy Hives Verified 07/26/24 14:54
polymyxin B Allergy Unknown Verified 07/26/24 14:54
Pertinent Physical Exam
All Other Systems: Negative
Head/Neck: Normal
Lungs: Normal
Heart: Normal
Abdomen: Other (Reducible right femoral hernia)
Extremities: Normal
Neurological: Normal
Diagnosis / Assessment
58-year-old female presenting for scheduled operative correction symptomatic right femoral hernia after recent bout of temporary incarceration with obstruction
Plan / Procedure
Robotic assisted laparoscopic repair of right femoral hernia with mesh
Anesthesia/Sedation to be done by Anesthesia Provider: Yes
--- NOTE | 2024-07-30 10:47 | W.SUR.PREOP ---
Pre-Operative Surgical Note
-
I have examined this patient prior to the performance of the scheduled procedure.
The patient's condition is unchanged from the time of the current History and
Physical and the patient is able to undergo the scheduled procedure.
[2024-07-30] MEDS: TYLENOL 1000 MG PO (12:16)
[2024-07-30] MEDS: NORMOSOL-R/PLASMALYTE-A 1000 IV (12:18)
--- NOTE | 2024-07-30 14:40 | W.IMMPOSTOP ---
Addendum entered and electronically signed by Rolo Harper MD 07/30/24 14:49:
#[id number]
Original Note:
Surgical Immed Post Op Note
-
Primary Surgeon: Rolo Harper MD
Assisting Surgeon: Aimee Lopez PA-C
Pre-op Diagnosis: Right femoral hernia
Post-op Diagnosis: Right femoral hernia
Procedure Performed: Robotic assisted laparoscopic repair right femoral hernia with mesh; 3D max large lightweight
Anesthesia Type: GETA +0.25% Marcaine
Specimen / Cultures: None
Estimated Blood Loss: 6 mL
Complications: None immediate
Operative Findings: Right femoral hernia. Direct and indirect spaces normal. Left inguinal area without inguinal nor femoral hernia. 3D max large lightweight mesh repair secured to Elmer's ligament with 2-0 Vicryl x 2. No additional incidental
findings.
The assistance of Aimee Lopez PA-C was required due to the complexity of the procedure. During the procedure Aimee Lopez PA-C assisted with port placement, robotic instrumentation and suture material exchanges, and closure of the surgical incision
sites. I was present for the entirety of the operative procedure.
Patient's daughter updated postoperatively via phone call
== END 2024-07-30 16:22 | disposition home or self-care (01) ==
LOC: SDS 06:26
PROVIDERS: ATTENDING PHYSICIAN Surgery
DX: K41.90 Unilateral femoral hernia, without obstruction or gangrene, not specified as recurrent (principal)
CPT/HCPCS: 49659; C1781

== ENCOUNTER → 2024-10-22 13:59 | Outpatient (REF) | payer OTHER, SELFPAY | LOC: RAD 13:59 | PROVIDERS: ATTENDING PHYSICIAN Family Medicine Adult Medicine | DX: M19.031 Primary osteoarthritis, right wrist (principal); M19.032 Primary osteoarthritis, left wrist; M19.041 Primary osteoarthritis, right hand; M19.042 Primary osteoarthritis, left hand | CPT/HCPCS: 73110; 73130 ==

== ENCOUNTER → 2024-10-27 12:39 | Outpatient (REF) | payer OTHER, SELFPAY | LOC: WDC 12:39 | PROVIDERS: ATTENDING PHYSICIAN Family Medicine Adult Medicine | DX: Z12.31 Encounter for screening mammogram for malignant neoplasm of breast (principal) | CPT/HCPCS: 77063; 77067 ==

== ENCOUNTER → 2024-11-12 10:35 | Outpatient (REF) | payer OTHER, SELFPAY | LOC: WDC 10:35 | PROVIDERS: ATTENDING PHYSICIAN Family Medicine Adult Medicine | DX: R92.8 Other abnormal and inconclusive findings on diagnostic imaging of breast (principal) | CPT/HCPCS: 76642 ==